=== PATIENT | male | born 2000 | race Hispanic/Latino ===

== ENCOUNTER 2022-09-17 11:40 | Outpatient (CLI) | payer BC ==
[2022-09-17 13:18] LABS: #Eosinphils 0.2 10x3/uL (0.0-0.5); #Monocytes 0.7 10x3/uL (0.0-1.1); #Neutrophils 4.8 10x3/uL (1.5-8.4); %Basophils 0.5 % (0.0-2.0); %Eosinophils 2.1 % (0.0-6.0); %Lymphocytes 32.9 % (18.0-47.0); %Monocytes 7.8 % (0.0-10.0); %Neutrophils 56.6 % (40.0-75.0); Mean Corpuscular HGB CONC 33.2 g/dL (32.0-36.0); Mean Corpuscular Hemoglobin 28.7 pg (27.0-33.0); Mean Corpuscular Volume 86.4 fl (81.2-95.1); Platelet Count 299 10x3/uL (150-450); RBC Distribution Width 13.2 % (11.5-14.5); Red Blood Cell (RBC) Count 5.23 10x6/uL (4.32-5.72); White Blood Cell (WBC) Count 8.4 10x3/uL (3.5-10.5)
== END 2022-09-17 11:41 | disposition home or self-care (01) ==
LOC: LABBT 11:40
PROVIDERS: ATTEND Surgery
DX: Z01.818 Encounter for other preprocedural examination (principal); K60.3 Anal fistula
CPT/HCPCS: 85025; 93005; 93010

== ENCOUNTER 2022-09-20 05:54 | Day surgery (SDC) | payer BC ==
[2022-09-17 13:01] VITALS: BMI 52.0
[2022-09-20] MEDS ORDERED: Lidocaine 2% PF 5 ML VIAL ONE (06:54)
[2022-09-20] MEDS ORDERED: Bupivacaine HCl 0.5%/Epinephrine 1:200,000/PF 30 ml Vial ONE (06:54)
[2022-09-20] MEDS ORDERED: Bacitracin Zinc Ointment 30 gm TUBE ONE (06:54)
[2022-09-20] MEDS ORDERED: fentaNYL PF 100 MCG/2 ML SYRINGE ONE (06:56)
[2022-09-20] MEDS ORDERED: SUGAMMADEX SODIUM 200 MG/2 ML VIAL ONE ×2 (06:56→07:13)
[2022-09-20] MEDS ORDERED: PROPOFOL 20 ML ONE (07:13)
[2022-09-20] MEDS ORDERED: Sodium Chloride 0.9% 100 ML ONE (07:58)
[2022-09-20] MEDS ORDERED: cefOXitin 2 GM VIAL ONE (07:58)
[2022-09-20] MEDS ORDERED: Dexamethasone 20 MG/5 ML VIAL ONE (08:08)
[2022-09-20] MEDS ORDERED: Ketorolac Tromethamine 30 MG/ML VIAL ONE (08:08)
[2022-09-20] MEDS ORDERED: Ondansetron PF 4 MG/2 ML Vial ONE (08:08)
[2022-09-20] MEDS ORDERED: PROPOFOL 200 MG/20 ML VIAL ONE (08:08)
[2022-09-20] MEDS ORDERED: Lidocaine 1% PF 5 ML VIAL ONE (08:08)
[2022-09-20] MEDS ORDERED: Rocuronium Bromide 10 MG/ML (10ML VIAL) ONE (08:08)
[2022-09-20] MEDS ORDERED: Methylene Blue 50 MG/10 ML AMPUL ONE (08:29)
== END 2022-09-20 11:01 | disposition home or self-care (01) ==
LOC: SDC 05:54
PROVIDERS: ATTEND Surgery
PROC: 0JQB0ZZ Repair Perineum Subcutaneous Tissue and Fascia, Open Approach (ICD-10-PCS; principal; 2022-09-20)
DX: K60.3 Anal fistula (principal)
CPT/HCPCS: J0694; J1100; J1885; J2001; J2405; J2704; J3490; Q9968